=== PATIENT | male | born 1985 | race Native Hawaiian/Other Pacific Islander ===

== ENCOUNTER 2019-01-15 18:33 | Emergency (ER) | payer OTHER ==
[~2019-01-15] VITALS: Ht 172.7 cm; Wt 78.0 kg
[2019-01-15 19:50] VITALS: BP 129/69; TEMP 99.1
== END 2019-01-15 19:50 | disposition home or self-care (01) ==
LOC: ED 18:33
DX: J11.1 Influenza due to unidentified influenza virus with other respiratory manifestations (principal)
CPT/HCPCS: 87502; 87651; 99283

== ENCOUNTER 2019-08-30 22:18 | Outpatient (CLI) | payer OTHER | END 2019-08-30 22:21 | disposition short-term general hospital (02) | LOC: AMB 22:18 | DX: M54.5 Low back pain (principal); W01.0XXA Fall on same level from slipping, tripping and stumbling without subsequent striking against object, initial encounter; Y93.9 Activity, unspecified; Y92.017 Garden or yard in single-family (private) house as the place of occurrence of the external cause | CPT/HCPCS: A0425; A0429 ==

== ENCOUNTER 2019-08-30 22:25 | Emergency (ER) | payer OTHER ==
[~2019-08-30] VITALS: Ht 172.7 cm; Wt 78.0 kg
[2019-08-30 22:25] VITALS: BP 116/86; TEMP 98.1
== END 2019-08-30 23:25 | disposition home or self-care (01) ==
LOC: ED 22:25
DX: M54.5 Low back pain (principal); W18.09XA Striking against other object with subsequent fall, initial encounter
CPT/HCPCS: 96372; 99283; J1885